=== PATIENT | female | born 1985 | race Caucasian/White ===

== ENCOUNTER 2020-08-11 16:18 | Outpatient (CLI) | payer OTHER | END 2020-08-11 16:19 | disposition home or self-care (01) | LOC: CSHMRI 16:18 | PROVIDERS: ATTEND Orthopaedic Surgery | DX: M76.821 Posterior tibial tendinitis, right leg (principal); M24.274 Disorder of ligament, right foot; S93.431A Sprain of tibiofibular ligament of right ankle, initial encounter; M65.871 Other synovitis and tenosynovitis, right ankle and foot; S82.51XD Displaced fracture of medial malleolus of right tibia, subsequent encounter for closed fracture with routine healing; M19.071 Primary osteoarthritis, right ankle and foot ==